=== PATIENT | female | born 1960 | race Caucasian/White ===

== ENCOUNTER → 2018-02-06 | Outpatient (CLI) | payer OTHER ==
--- NOTE | 2018-02-06 14:08 | Diagnostic Imaging Report ---
INDICATION: Routine screening. COMPARISON: No prior mammograms are available for comparison. This is a baseline study. TECHNIQUE: 2D and 3D bilateral screening mammography was performed with CAD. FINDINGS: Both breasts are heterogeneously dense, limiting the sensitivity of mammography. Bilateral breast implants are noted. There are benign calcifications bilaterally. No mass or malignant appearing microcalcifications are seen. The axillae are unremarkable. IMPRESSION: No mammographic features suspicious for malignancy are identified. ACR BI-RADS Category 2: Benign findings. Result letter will be mailed to the patient. Note: At least 10% of breast cancer is not imaged by mammography. Dictated by: Dictated on workstation # [id number]
== END ==
LOC: RAD 09:37
PROVIDERS: ATTEND Family Medicine
DX: Z12.31 Encounter for screening mammogram for malignant neoplasm of breast (principal)
CPT/HCPCS: 77067

== ENCOUNTER → 2018-02-22 | Outpatient (CLI) | payer OTHER ==
--- NOTE | 2018-02-22 10:13 | Diagnostic Imaging Report ---
PROCEDURE: MR imaging cervical spine without contrast. TECHNIQUE: Multiplanar, multisequence MR imaging of the cervical spine was performed without contrast. INDICATION: Neck pain with right arm pain and numbness. COMPARISON: No prior studies are available for comparison. FINDINGS: Curvature and alignment of the cervical spine is normal. Vertebral body marrow signal is unremarkable apart from benign hemangiolipomas within the T1 and T4 vertebral bodies. There is some generalized degenerative disc disease with variable disc space narrowing and desiccation, greatest at C5-6 level. The cervical spinal cord demonstrates normal homogeneous signal intensity and normal morphology. C2-3: No central canal or neural foraminal narrowing is detected. C3-4: Unremarkable. C4-5: There are some endplate osteophytes indenting the ventral thecal sac but no significant central canal or neural foraminal narrowing is seen. C5-6: Endplate osteophytes and uncovertebral joint degenerative change are noted. This does appear to narrow or produce moderate narrowing of right neural foramen. Left neural foramen and central canal are patent. C6-7: Unremarkable. C7-T1: Unremarkable. Paraspinous tissues are unremarkable. IMPRESSION: Cervical spondylosis, greatest at the C5-6 level where there is moderate right-sided neural foraminal narrowing. No central canal stenosis is identified. Dictated by: Dictated on workstation # [id number]
== END ==
LOC: RAD 09:18
PROVIDERS: ATTEND Family Medicine
DX: M47.812 Spondylosis without myelopathy or radiculopathy, cervical region (principal); M99.71 Connective tissue and disc stenosis of intervertebral foramina of cervical region
CPT/HCPCS: 72141

== ENCOUNTER → 2018-11-26 | Outpatient (CLI) | payer OTHER ==
--- NOTE | 2018-11-26 13:09 | Diagnostic Imaging Report ---
CLINICAL INDICATION: Patient with neck pain and had one surgery, going for second one later this month. EXAM: CT scan of the cervical spine performed without IV contrast. Sagittal and coronal reformatted images are created. COMPARISON: MRI of the cervical spine without contrast dated 02/22/2018. FINDINGS: There is interval postop changes with intervertebral disc graft seen at the C5-C6 level. There is improved intervertebral height at the C5-C6 level. There is no hardware complications. There is no acute cervical spine fracture. There are small cervical spine vertebral body spurs. There is facet arthropathy/hypertrophy involving the left mid to upper cervical region. There is no significant paraspinal soft tissue abnormality. There is a surgical clip seen posteriorly adjacent to the left thyroid gland. Visualized upper lung bullock are clear. C1-C2: There is degenerative spurs involving the atlantoodontoid interval anteriorly. C2-C3: There is moderate facet arthropathy/hypertrophy involving the left facet. There is moderate left neural foramen narrowing and no significant right neural foramen narrowing which is stable. There is no significant central canal narrowing. C3-C4: There is stable Grade 1 anterolisthesis of C3 on C4. There is moderate left facet arthropathy and small left uncinate spurs seen. There is stable moderate left neural foramen narrowing. There is no significant right neural foramen narrowing. There is no significant central canal narrowing. C4-C5: There is slight progression of Grade 1 anterolisthesis of C4 on C5 which is roughly 2 mm compared to the prior study of roughly 1 mm. There appears to be diffuse disc bulge with posterior disc herniation component which appears to have slightly progressed. There is severe left facet arthropathy/hypertrophy again seen. There is moderate left neural foramen narrowing which is stable and no significant right neural foramen narrowing. There is no significant bony central canal narrowing. C5-C6: Intervertebral disc graft is seen with streak artifact obscuring this level. There is no gross bony central canal or neural foramen narrowing, as visualized. C6-C7: There is mild diffuse disc bulge with no significant central canal or neural foramen narrowing. C7-T1: There is no significant central spinal canal or neural foramen narrowing. IMPRESSION: 1: Interval postop changes with placement of C5-C6 intervertebral disc graft with no complications. There is improved height of the C5-C6 intervertebral region. 2: There is progression of Grade 1 anterolisthesis of C4 on C5 with diffuse disc bulge which appears to have slightly progressed. 3: Stable Grade 1 anterolisthesis of C3 on C4. 4: The remainder of the cervical spine degenerative disease has not significantly changed. Dictated by: Dictated on workstation # [id number]
== END ==
LOC: RAD 12:18
PROVIDERS: ATTEND Physician Assistant
DX: M43.12 Spondylolisthesis, cervical region (principal); M50.221 Other cervical disc displacement at C4-C5 level; M47.812 Spondylosis without myelopathy or radiculopathy, cervical region; Z98.890 Other specified postprocedural states
CPT/HCPCS: 72125